=== PATIENT | male | born 1940 | race Native Hawaiian/Other Pacific Islander ===

== ENCOUNTER 2016-12-24 15:10 | Emergency (ER) | payer OTHER ==
[~2016-12-24] VITALS: Ht 175.3 cm; Wt 89.8 kg
[2016-12-24 15:21] VITALS: TEMP 98.4
== END 2016-12-24 16:00 | disposition home or self-care (01) ==
LOC: ED 15:10
DX: S41.112A Laceration without foreign body of left upper arm, initial encounter (principal); W18.39XA Other fall on same level, initial encounter; Y92.098 Other place in other non-institutional residence as the place of occurrence of the external cause
CPT/HCPCS: 99282

== ENCOUNTER 2017-01-01 14:32 | Outpatient (CLI) | payer OTHER ==
[2017-01-01 14:48] LABS: PLATELET COUNT 326 K/uL (142-355)
[2017-01-01 15:01] LABS: POTASSIUM 3.9 mmol/L (3.6-5.2); SODIUM 135 mmol/L (136-145)
== END 2017-01-01 19:16 | disposition home or self-care (01) ==
LOC: LABW 14:32
PROVIDERS: Internal Medicine
DX: E78.4 Other hyperlipidemia (principal); R73.01 Impaired fasting glucose; I10 Essential (primary) hypertension
CPT/HCPCS: 36415; 80053; 80061; 82043; 82570; 83036; 85027

== ENCOUNTER 2017-03-25 09:56 | Outpatient (CLI) | payer OTHER | END 2017-03-25 11:00 | disposition home or self-care (01) | LOC: LABW 09:56 | DX: Z12.5 Encounter for screening for malignant neoplasm of prostate (principal); E11.9 Type 2 diabetes mellitus without complications | CPT/HCPCS: 36415; 83036; 84153 ==

== ENCOUNTER 2017-07-07 20:24 | Observation (INO) | payer OTHER ==
[~2017-07-07] VITALS: Ht 175.3 cm; Wt 93.9 kg
[2017-07-07 20:44] VITALS: BP 115/64; TEMP 98.1
[2017-07-07 21:10] LABS: PLATELET COUNT 308 K/uL (142-355)
[2017-07-07 21:29] LABS: POTASSIUM 3.8 mmol/L (3.6-5.2); SODIUM 134 mmol/L (136-145)
[2017-07-07] MEDS ORDERED: LIPITOR80 MG PO (23:06)
[2017-07-07] MEDS ORDERED: ASPI-93 PO (23:06)
[2017-07-07] MEDS ORDERED: PRINIVIL5 MG PO (23:07)
[2017-07-07] MEDS ORDERED: AMLO2.5T PO (23:07)
[2017-07-07] MEDS ORDERED: MORPHINE SUL PO (23:08)
[2017-07-07] MEDS ORDERED: CLOP75TA2 PO (23:08)
[2017-07-08 00:08] LABS: PARTIAL THROMBOPLASTIN TIME 24.5 SECONDS (24.5-33.6)
[2017-07-08 00:33] VITALS: BP 123/69; TEMP 99.2; Ht 175.3 cm; Wt 93.9 kg
[2017-07-08 04:00] VITALS: BP 106/50; TEMP 97.7
[2017-07-08 08:00] VITALS: BP 112/53; TEMP 98.3
[2017-07-08 08:06] LABS: PLATELET COUNT 282 K/uL (142-355)
[2017-07-08 08:17] LABS: POTASSIUM 3.9 mmol/L (3.6-5.2); SODIUM 139 mmol/L (136-145)
[2017-07-08 12:00] VITALS: BP 139/53; TEMP 98.4
[2017-07-08 16:00] VITALS: BP 160/57; TEMP 98.5
[2017-07-08 20:07] VITALS: BP 130/52; TEMP 98.7
[2017-07-09] VITALS: BP 101/36; TEMP 97.9
[2017-07-09 04:00] VITALS: BP 126/40; TEMP 98.2
[2017-07-09 04:49] LABS: PLATELET COUNT 268 K/uL (142-355)
[2017-07-09 05:48] LABS: POTASSIUM 4.1 mmol/L (3.6-5.2); SODIUM 135 mmol/L (136-145)
[2017-07-09 07:57] VITALS: BP 13/45; TEMP 97.9
--- NOTE | 2017-07-09 11:00 | NUR ---
D/C ORDERS RECIEVED. IV D/C'D. F/U WITH DR. SOUSA AND DR. SANJANA BOYD. D/C INSTURCTIONS GIVEN. PT HAS NO FUTHER QUESTIONS. PT WALKED OUT TO CAR AT THIS TIME. NO PROBLEMS NOTED.
== END 2017-07-09 11:10 | disposition home or self-care (01) ==
LOC: ED 20:24 → MED/SURG 22:34
PROVIDERS: Family Medicine
DX: R07.89 Other chest pain (principal); R51 Headache; E11.9 Type 2 diabetes mellitus without complications; I10 Essential (primary) hypertension; K21.9 Gastro-esophageal reflux disease without esophagitis; R82.99 Other abnormal findings in urine
CPT/HCPCS: 36415; 80053; 81000; 82550; 82948; 83735; 84484; 85027; 85610; 85730; 87088; 93005; 94760; 96367; 96372; 96374; 99220; 99283; G0378; J1650

== ENCOUNTER 2017-10-28 09:26 | Outpatient (CLI) | payer OTHER ==
[~2017-10-28 09:26] MED LIST: AMLO2.5T PO; ASPI-93 PO; CLOP75TA2 PO; LIPITOR80 MG PO; MORPHINE SUL PO; PRINIVIL5 MG PO
[2017-10-28 09:46] LABS: PLATELET COUNT 319 K/uL (142-355)
[2017-10-28 10:24] LABS: POTASSIUM 3.9 mmol/L (3.6-5.2); SODIUM 134 mmol/L (136-145)
== END 2017-10-28 21:50 | disposition home or self-care (01) ==
LOC: LABW 09:26
PROVIDERS: Internal Medicine
DX: I10 Essential (primary) hypertension (principal); E78.2 Mixed hyperlipidemia; E11.9 Type 2 diabetes mellitus without complications
CPT/HCPCS: 36415; 80053; 80061; 83036; 85027

== ENCOUNTER 2017-11-01 08:48 | Outpatient (CLI) | payer OTHER ==
[2017-11-01 09:49] LABS: PLATELET COUNT 310 K/uL (142-355)
[2017-11-01 09:55] LABS: POTASSIUM 4.2 mmol/L (3.6-5.2)
[2017-11-01 10:06] LABS: PARTIAL THROMBOPLASTIN TIME 24.9 SECONDS (24.5-33.6)
== END 2017-11-01 19:28 | disposition home or self-care (01) ==
LOC: LABW 08:48
PROVIDERS: Surgery
DX: I77.1 Stricture of artery (principal); Z01.810 Encounter for preprocedural cardiovascular examination; Z01.812 Encounter for preprocedural laboratory examination
CPT/HCPCS: 36415; 80053; 85027; 85610; 85730; 93005

== ENCOUNTER 2018-03-17 09:29 | Outpatient (CLI) | payer OTHER ==
[2018-03-17 10:18] LABS: POTASSIUM 3.1 mmol/L (3.6-5.2)
== END 2018-03-17 22:03 | disposition home or self-care (01) ==
LOC: LABW 09:29
PROVIDERS: Internal Medicine
DX: E11.9 Type 2 diabetes mellitus without complications (principal); Z12.5 Encounter for screening for malignant neoplasm of prostate; E78.4 Other hyperlipidemia
CPT/HCPCS: 36415; 80053; 80061; 82043; 82570; 83036; 84153

== ENCOUNTER 2018-11-18 11:26 | Outpatient (CLI) | payer OTHER ==
[2018-11-18 12:09] LABS: PLATELET COUNT 469 K/uL (142-355)
== END 2018-11-18 20:28 | disposition home or self-care (01) ==
LOC: LABW 11:26
PROVIDERS: Internal Medicine
DX: I25.10 Atherosclerotic heart disease of native coronary artery without angina pectoris (principal); I10 Essential (primary) hypertension; E78.2 Mixed hyperlipidemia; E11.9 Type 2 diabetes mellitus without complications
CPT/HCPCS: 36415; 80053; 80061; 83036; 85027

== ENCOUNTER 2019-05-07 11:37 | Outpatient (CLI) | payer OTHER ==
[2019-05-07 12:22] LABS: POTASSIUM 4.3 mmol/L (3.6-5.2)
[2019-05-07 12:34] LABS: PLATELET COUNT 310 K/uL (142-355)
== END 2019-05-07 23:35 | disposition home or self-care (01) ==
LOC: LABW 11:37
PROVIDERS: Internal Medicine
DX: I10 Essential (primary) hypertension (principal); E11.9 Type 2 diabetes mellitus without complications; E78.2 Mixed hyperlipidemia
CPT/HCPCS: 36415; 80053; 80061; 83036; 85027

== ENCOUNTER 2019-11-16 11:17 | Outpatient (CLI) | payer OTHER ==
[2019-11-16 12:59] LABS: POTASSIUM 4.1 mmol/L (3.6-5.2)
== END 2019-11-16 19:14 | disposition home or self-care (01) ==
LOC: LABW 11:17
PROVIDERS: Internal Medicine
DX: E11.9 Type 2 diabetes mellitus without complications (principal)
CPT/HCPCS: 36415; 80053; 80061; 82043; 82570; 83036

== ENCOUNTER 2020-03-21 10:39 | Outpatient (CLI) | payer OTHER | END 2020-03-21 23:11 | disposition home or self-care (01) | LOC: LABW 10:39 | DX: Z20.828 Contact with and (suspected) exposure to other viral communicable diseases (principal) | CPT/HCPCS: 36415; 86769 ==

== ENCOUNTER 2020-06-06 11:32 | Outpatient (CLI) | payer OTHER ==
[2020-06-06 12:15] LABS: PLATELET COUNT 266 K/uL (142-355)
[2020-06-06 12:41] LABS: POTASSIUM 4.2 mmol/L (3.6-5.2)
== END 2020-06-06 19:20 | disposition home or self-care (01) ==
LOC: LABW 11:32
PROVIDERS: Internal Medicine
DX: I25.10 Atherosclerotic heart disease of native coronary artery without angina pectoris (principal); I73.9 Peripheral vascular disease, unspecified; E11.9 Type 2 diabetes mellitus without complications; N40.0 Benign prostatic hyperplasia without lower urinary tract symptoms
CPT/HCPCS: 36415; 80053; 80061; 83036; 84153; 85027

== ENCOUNTER 2020-12-12 08:49 | Outpatient (CLI) | payer OTHER ==
[2020-12-12 09:28] LABS: POTASSIUM 4.4 mmol/L (3.6-5.2)
== END 2020-12-12 22:48 | disposition home or self-care (01) ==
LOC: LABW 08:49
PROVIDERS: ATTEND Internal Medicine
DX: E78.2 Mixed hyperlipidemia (principal); E11.9 Type 2 diabetes mellitus without complications
CPT/HCPCS: 36415; 80053; 80061; 83036

== ENCOUNTER 2021-06-05 07:41 | Outpatient (CLI) | payer OTHER ==
[2021-06-05 08:18] LABS: PLATELET COUNT 279 K/uL (142-355)
[2021-06-05 08:54] LABS: POTASSIUM 3.9 mmol/L (3.6-5.2)
== END 2021-06-05 21:42 | disposition home or self-care (01) ==
LOC: LABW 07:41
PROVIDERS: ATTEND Internal Medicine
DX: E78.2 Mixed hyperlipidemia (principal); E11.9 Type 2 diabetes mellitus without complications; I10 Essential (primary) hypertension
CPT/HCPCS: 36415; 80053; 80061; 82043; 82570; 83036; 85027

== ENCOUNTER 2021-09-23 07:40 | Observation (INO) | payer OTHER ==
[2021-09-23] VITALS (16 sets, daily range): BP systolic 11–171; BP diastolic 49–69; TEMP 97.8–98.3; Ht 175.3 cm; Wt 81.3 kg
[~2021-09-23] VITALS: Ht 175.3 cm; Wt 81.3 kg
[2021-09-23 08:28] LABS: POTASSIUM 4.1 mmol/L (3.6-5.2)
[2021-09-23 08:32] LABS: PLATELET COUNT 337 K/uL (142-355)
[2021-09-23 08:35] LABS: PARTIAL THROMBOPLASTIN TIME 26.5 SECONDS (24.5-33.6)
[2021-09-23] MEDS ORDERED: DOXAZOSIN4 M1 PO (11:29)
[2021-09-23] MEDS ORDERED: AMLODIPINE BESYLATE PO (11:29)
[2021-09-23] MEDS ORDERED: METO25TA2 PO (11:29)
[2021-09-23] MEDS ORDERED: LIPITOR80 MG PO (11:30)
[2021-09-23] MEDS ORDERED: LISI10TA11 PO (11:30)
[2021-09-23] MEDS ORDERED: METF500T PO (11:30)
[2021-09-23] MEDS ORDERED: FURO20TA67 PO (11:31)
[2021-09-24 00:03] VITALS: BP 93/42; TEMP 98.6
== END 2021-09-24 03:50 | disposition short-term general hospital (02) ==
LOC: ED 07:40 → MED/SURG 12:18
PROVIDERS: Emergency Medicine; ADMIT Internal Medicine; ATTEND Internal Medicine
DX: I21.4 Non-ST elevation (NSTEMI) myocardial infarction (principal); R07.89 Other chest pain; I25.10 Atherosclerotic heart disease of native coronary artery without angina pectoris; I11.0 Hypertensive heart disease with heart failure; I50.9 Heart failure, unspecified; E11.9 Type 2 diabetes mellitus without complications; N40.0 Benign prostatic hyperplasia without lower urinary tract symptoms; K21.9 Gastro-esophageal reflux disease without esophagitis; J90 Pleural effusion, not elsewhere classified
CPT/HCPCS: 36415; 80053; 82550; 83880; 84484; 85027; 85379; 85610; 85730; 87635; 93005; 94760; 96365; 96366; 96375; 99220; 99284; G0378; J0456; J0696; J1644; U0003

== ENCOUNTER 2023-02-21 09:23 | Outpatient (CLI) | payer OTHER ==
[~2023-02-21 09:23] MED LIST changes: +AMLODIPINE BESYLATE PO; +DOXAZOSIN4 M1 PO; +FURO20TA67 PO; +LISI10TA11 PO; +METF500T PO; +METO25TA2 PO
[2023-02-21 10:17] LABS: PLATELET COUNT 416 K/uL (142-355)
[2023-02-21 10:28] LABS: POTASSIUM 4.1 mmol/L (3.6-5.2)
== END 2023-02-21 17:00 | disposition home or self-care (01) ==
LOC: RAD 09:23
PROVIDERS: ATTEND Registered Nurse
DX: R23.1 Pallor (principal); R06.02 Shortness of breath; R53.1 Weakness; J20.8 Acute bronchitis due to other specified organisms
CPT/HCPCS: 36415; 80053; 83880; 85027; 85379

== ENCOUNTER 2023-02-21 13:37 | Emergency (ER) | payer OTHER ==
[~2023-02-21] VITALS: Ht 175.3 cm; Wt 79.8 kg
[2023-02-21 13:40] VITALS: TEMP 96.8
[2023-02-21 14:07] LABS: PLATELET COUNT 419 K/uL (142-355)
[2023-02-21 14:22] LABS: POTASSIUM 4.2 mmol/L (3.6-5.2)
[2023-02-21 16:01] VITALS: BP 94/62
== END 2023-02-21 16:01 | disposition home or self-care (01) ==
LOC: ED 13:37
PROVIDERS: Emergency Medicine
DX: R60.0 Localized edema (principal); D64.9 Anemia, unspecified
CPT/HCPCS: 80053; 83880; 84484; 85027; 93005; 96374; 99284; J1940

== ENCOUNTER 2023-03-03 17:05 | Emergency (ER) | payer OTHER ==
[~2023-03-03] VITALS: Ht 175.3 cm; Wt 72.6 kg
== END 2023-03-03 18:55 | disposition expired ==
LOC: ED 17:05
DX: I46.9 Cardiac arrest, cause unspecified (principal); I21.9 Acute myocardial infarction, unspecified; I50.9 Heart failure, unspecified; I10 Essential (primary) hypertension
CPT/HCPCS: 92950; 99285; 99292; J0171; J0461; J3490; J7060